=== PATIENT | female | born 1980 | race Caucasian/White ===

== ENCOUNTER 2017-02-18 23:36 | Emergency (ER) | payer BC ==
[~2017-02-18] VITALS: Ht 162.6 cm; Wt 72.7 kg
[~2017-02-18 23:36] MED LIST: EFFEXOR XR150 M1 PO; NORCO 325 MG-51 TAB PO; ZYRTEC10 M1 PO
[2017-02-18] MEDS ORDERED: ATIVAN0.5 MG PO (23:49)
[2017-02-18] MEDS ORDERED: NEXIUM20 MG PO (23:50)
[2017-02-18] MEDS ORDERED: LEXAPRO20 M1 PO (23:50)
[2017-02-19] MEDS ORDERED: PERCOCET 325 MG1 TA2 PO (01:12)
[2017-02-19] MEDS ORDERED: ZOFRAN ODT8 M1 PO (01:12)
[2017-02-19 01:46] VITALS: BP 113/73
== END 2017-02-19 01:46 | disposition home or self-care (01) ==
LOC: ED 23:36
DX: R10.12 Left upper quadrant pain (principal); R10.11 Right upper quadrant pain; R10.13 Epigastric pain; R11.0 Nausea; K21.9 Gastro-esophageal reflux disease without esophagitis; F41.9 Anxiety disorder, unspecified
CPT/HCPCS: J1885; J2270; J2405; J7030

== ENCOUNTER → 2017-02-19 | Outpatient (CLI) | payer BC ==
[~2017-02-19] MED LIST changes: +ATIVAN0.5 MG PO; +LEXAPRO20 M1 PO; +NEXIUM20 MG PO; +PERCOCET 325 MG1 TA2 PO; +ZOFRAN ODT8 M1 PO
[2017-02-19 01:46] VITALS: BP 113/73
== END ==
LOC: RAD 09:17
DX: R10.13 Epigastric pain (principal)

== ENCOUNTER → 2018-01-13 | Outpatient (CLI) | payer BC | LOC: MAMMO 15:12 | DX: Z12.31 Encounter for screening mammogram for malignant neoplasm of breast (principal) ==

== ENCOUNTER 2021-09-07 12:06 | Emergency (ER) | payer BC ==
[~2021-09-07] VITALS: Ht 162.6 cm; Wt 77.3 kg
[2021-09-07] MEDS ORDERED: XARELTO20 MG PO (13:27)
[2021-09-07] MEDS ORDERED: KLONOPIN 0.5MG0.5 MG PO (13:27)
[2021-09-07] MEDS ORDERED: TRAMADOL 50 MG TAB PO (13:28)
[2021-09-07] MEDS ORDERED: FERROUS SULFAT325 M4 PO (13:34)
[2021-09-07 14:38] LABS: HEMATOCRIT 34.2 % (37.0-47.0); HEMOGLOBIN 10.7 g/dL (12.5-16.0); MEAN CELL VOLUME 84 fl (78-100); MEAN CORPUSCULAR HEMOGLOBIN 26 pg (27-31); MEAN CORPUSCULAR HGB CONC 31 g/dL (33-37); MEAN PLATELET VOLUME 10.6 fl (7.4-10.4); PLATELET COUNT 198 K/mm3 (130-400); RED BLOOD COUNT 4.06 M/mm3 (4.10-5.30); RED CELL DISTRIBUTION WIDTH 15.9 % (11.5-14.5); WHITE BLOOD COUNT 3.3 K/mm3 (4.8-10.8)
[2021-09-07 14:52] LABS: ALBUMIN 3.5 g/dL (3.5-5.0); POTASSIUM 4.1 mmol/L (3.5-5.1)
[2021-09-07 14:54] LABS: CALCIUM 8.7 mg/dL (8.3-10.5)
[2021-09-07 14:55] LABS: TOTAL PROTEIN 6.3 g/dL (6.4-8.3)
[2021-09-07 14:57] LABS: TOTAL BILIRUBIN 0.2 mg/dL (0.2-1.2)
[2021-09-07 15:32] LABS: LYMPHOCYTE 18 % (20-51); MONOCYTE 8 % (3-10); NEUTROPHILS 72 % (42-75)
[2021-09-07] MEDS ORDERED: PERCOCET 325 MG1 TA2 PO (16:42)
[2021-09-07 17:02] VITALS: BP 124/81
== END 2021-09-07 17:09 | disposition home or self-care (01) ==
LOC: ED 12:06
PROVIDERS: Physician Assistant
DX: C18.9 Malignant neoplasm of colon, unspecified (principal); C78.7 Secondary malignant neoplasm of liver and intrahepatic bile duct; I82.409 Acute embolism and thrombosis of unspecified deep veins of unspecified lower extremity; I26.99 Other pulmonary embolism without acute cor pulmonale; F17.290 Nicotine dependence, other tobacco product, uncomplicated; Z90.49 Acquired absence of other specified parts of digestive tract; Z87.42 Personal history of other diseases of the female genital tract; Z79.01 Long term (current) use of anticoagulants
CPT/HCPCS: J1644; J1885; J7030; Q9967

== ENCOUNTER → 2022-04-09 | Outpatient (CLI) | payer BC ==
[~2022-04-09] MED LIST changes: +FERROUS SULFAT325 M4 PO; +KLONOPIN 0.5MG0.5 MG PO; +TRAMADOL 50 MG TAB PO; +XARELTO20 MG PO
== END ==
LOC: MAMMO 08:30
DX: Z12.31 Encounter for screening mammogram for malignant neoplasm of breast (principal)

== ENCOUNTER → 2022-11-01 | Outpatient (CLI) | payer BC ==
[~2022-11-01] VITALS: Ht 162.6 cm; Wt 77.3 kg
[2022-11-01 12:21] VITALS: BP 104/69
== END ==
LOC: AMSURD 09:07
DX: C18.9 Malignant neoplasm of colon, unspecified (principal)
CPT/HCPCS: J1644

== ENCOUNTER → 2023-10-31 | Outpatient (CLI) | payer BC | LOC: RAD 08:15 → VAS 08:15 | DX: Z86.718 Personal history of other venous thrombosis and embolism (principal) ==

== ENCOUNTER → 2024-01-20 | Outpatient (CLI) | payer BC ==
[2024-01-20 17:03] LABS: BASO # 0.05 K/mm3 (0.02-0.10); EOS # 0.21 K/mm3 (0.04-0.40); EOS % 3.9 % (1.0-5.0); HEMATOCRIT 36.8 % (37.0-47.0); HEMOGLOBIN 11.9 g/dL (12.5-16.0); LYMPH# 1.55 K/mm3 (1.50-4.00); MEAN CELL VOLUME 88 fl (78-100); MEAN CORPUSCULAR HEMOGLOBIN 28 pg (27-31); MEAN CORPUSCULAR HGB CONC 32 g/dL (33-37); MEAN PLATELET VOLUME 10.6 fl (7.4-10.4); MONO # 0.41 K/mm3 (0.20-0.80); NEU # 3.22 K/mm3 (1.40-6.50); PLATELET COUNT 231 K/mm3 (130-400); RED BLOOD COUNT 4.19 M/mm3 (4.10-5.30); RED CELL DISTRIBUTION WIDTH 14.5 % (11.5-14.5); WHITE BLOOD COUNT 5.5 K/mm3 (4.8-10.8)
== END ==
LOC: LAB 16:44
DX: I82.452 Acute embolism and thrombosis of left peroneal vein (principal)

== ENCOUNTER → 2024-11-02 | Outpatient (CLI) | payer BC ==
[2024-11-02 16:10] LABS: BASO # 0.06 K/mm3 (0.02-0.10); EOS # 0.13 K/mm3 (0.04-0.40); HEMATOCRIT 32.1 % (37.0-47.0); LYMPH# 1.59 K/mm3 (1.50-4.00); MEAN CELL VOLUME 83 fl (78-100); MEAN CORPUSCULAR HEMOGLOBIN 26 pg (27-31); MEAN CORPUSCULAR HGB CONC 31 g/dL (33-37); MEAN PLATELET VOLUME 10.3 fl (7.4-10.4); MONO # 0.33 K/mm3 (0.20-0.80); NEU # 2.24 K/mm3 (1.40-6.50); PLATELET COUNT 307 K/mm3 (130-400); RED BLOOD COUNT 3.89 M/mm3 (4.10-5.30); RED CELL DISTRIBUTION WIDTH 14.2 % (11.5-14.5); WHITE BLOOD COUNT 4.4 K/mm3 (4.8-10.8)
[2024-11-02 16:23] LABS: D-DIMER 0.42 mg/L FEU (0.15-0.50)
== END ==
LOC: LAB 15:53
PROVIDERS: Internal Medicine Medical Oncology
DX: I82.452 Acute embolism and thrombosis of left peroneal vein (principal)